=== PATIENT | female | born 1955 | race Caucasian/White ===

== ENCOUNTER 2021-06-10 09:48 | Outpatient (CLI) | payer OTHER, SELFPAY ==
--- NOTE | 2021-06-10 09:15 | DI.RAD_ITS ---
Exam(s) XR HIP RT COMPLETE AP PELVIS EXAM: XR HIP RT COMPLETE AP PELVIS CLINICAL HISTORY: pain. TECHNIQUE: 2D digital imaging was performed of the right hip. Three images were obtained. AP pelvis and lateral right hip views were obtained. COMPARISON: No exams were available for comparison FINDINGS: BONES: No acute fracture is present. No bony destructive lesion is seen. Degenerative changes are see n in the visualized lumbar spine. JOINTS: No dislocation present. Mild hypertrophic changes are seen at the greater trochanters bilater ally. There also mild hypertrophic changes seen at the right acetabulum. An accessory ossicle appea rs to lie adjacent to the acetabula. SOFT TISSUE: Note is made of an IUD in the pelvis. IMPRESSION: Degenerative changes about the right hip. DATA REPOSITORY: RADIATION DOSE DELIVERED:
== END 2021-06-10 09:49 | disposition home or self-care (01) ==
LOC: DIORS 09:49
PROVIDERS: PCP Physician Assistant Medical; Referring Provider Physician Assistant Medical; Visit Provider Physician Assistant Surgical
DX: M25.551 Pain in right hip (principal); M16.11 Unilateral primary osteoarthritis, right hip
CPT/HCPCS: 73502

== ENCOUNTER → 2021-08-25 10:37 | Outpatient (BNVA) | payer MEDICARE, OTHER, SELFPAY | PROVIDERS: PCP Physician Assistant Medical; Referring Provider Physician Assistant Medical; Visit Provider Student in an Organized Health Care Education/Training Program | DX: M70.61 Trochanteric bursitis, right hip (principal); M70.62 Trochanteric bursitis, left hip; M76.31 Iliotibial band syndrome, right leg; M76.01 Gluteal tendinitis, right hip | CPT/HCPCS: 99214 ==